=== PATIENT | male | born 1955 | race Caucasian/White ===

== ENCOUNTER 2018-10-11 13:42 | Emergency (ER) | payer BC, MEDICAID ==
[~2018-10-11] VITALS: Ht 172.7 cm; Wt 94.0 kg
--- NOTE | 2018-10-11 15:15 | NUR ---
Pt to room from lobby.
--- NOTE | 2018-10-11 15:40 | NUR ---
PT REPORTS NAUSEA, CHILLS, SWEATS, AND VOMITING FOR THE PAST FEW DAYS. STATES HE STOPPED TAKING GABAPENTIN ABOUT A MONTH AGO "AND THAT STUFF IS JUST CRAP" AT BEDSIDE, PT ON CONT CARDIAC AND PULSE OX MONITORING. AWAITING MD VICK
[2018-10-11] MEDS ORDERED: ONDANSETRON 2MG/ML, 2ML ONE ×2 (16:16→17:33)
[2018-10-11] MEDS ORDERED: MAALOX/HYOSCYAMINE/LIDOCAINE 45 ML BTL ONE (16:16)
[2018-10-11 16:27] LABS: BASOPHILS # (AUTO) 0.08 x10^3/uL (0-0.1); BASOPHILS % (AUTO) 1 % (0-1); EOSINOPHILS % (AUTO) 0 % (1-7); LYMPHOCYTES # (AUTO) 0.78 x10^3/uL (1-3.4); LYMPHOCYTES % (AUTO) 5 % (22-44); MD NO; MEAN CORPUSCULAR HEMOGLOBIN 33.1 pg (27.5-34.5); MEAN CORPUSCULAR HGB CONC 34.5 g/dL (33.2-36.2); MEAN CORPUSCULAR VOLUME 95.9 fL (81-97); MEAN PLATELET VOLUME 10.8 fL (7.4-10.4); MONOCYTES # (AUTO) 0.71 x10^3/uL (0.2-0.8); MONOCYTES % (AUTO) 5 % (2-9); NEUTROPHILS # (AUTO) 13.49 x10^3/uL (1.8-6.8); NEUTROPHILS % (AUTO) 90 % (42-75); PLATELET COUNT 193 x10^3/uL (130-400); RED BLOOD COUNT 4.97 x10^6/uL (4.38-5.82); RED CELL DISTRIBUTION WIDTH 13.6 % (9.4-14.8)
[2018-10-11] MEDS ORDERED: SODIUM CHLORIDE FLUSH 10ML SYR IVF ONE (16:30)
[2018-10-11] MEDS ORDERED: MAALOX/HYOSCYAMINE/LIDOCAINE 45 ML BTL PO ONE (16:30)
[2018-10-11] MEDS ORDERED: SODIUM CHLORIDE 0.9% 1,000ML IVBOLUS ONE (16:30)
--- NOTE | 2018-10-11 16:30 | NUR ---
FLUIDS INFUSING, PT IN ROOM DRY MD ZABRINA AWARE, PER OK TO GIVE ZOFRAN IV PRIOR TO GI COCKTAIL TO AVOID VOMITING.
[2018-10-11 16:36] LABS: ALBUMIN 4.3 g/dL (3.4-5.0); ANION GAP 9 mmol/L (5-15); CALCIUM 9.4 mg/dL (8.5-10.1); CHLORIDE 107 mmol/L (98-107)
[2018-10-11 16:44] LABS: ALANINE AMINOTRANSFERASE 39 U/L (12-78); ALKALINE PHOSPHATASE 76 U/L (45-117); BILIRUBIN,TOTAL 1.1 mg/dL (0.2-1.0); CREATININE 1.11 mg/dL (0.7-1.3); TOTAL PROTEIN 8.3 g/dL (6.4-8.2); TROPONIN I < 0.015 ng/mL (0.000-0.045)
--- NOTE | 2018-10-11 16:58 | NUR ---
PT REPORTS CONTINUED NAUSEA, WILL NOTIFY
[2018-10-11] MEDS ORDERED: ONDANSETRON 2MG/ML, 2ML IVPush ONE ×2 (17:00→17:30)
[2018-10-11 17:42] VITALS: BP 162/86
--- NOTE | 2018-10-11 17:42 | NUR ---
PT MEDICATED PER EMAR, REPORTS DECREASED NAUSEA, BUT STILL THERE. WILL RECHECK, PT AGREES TO DC AFTER RECHECK
--- NOTE | 2018-10-11 18:03 | NUR ---
PT REPORTS DECREASED NAUSEA, AGREES TO DC PLANS. DENIES VOMITING SINCE MEDICATED.
== END 2018-10-11 18:20 | disposition home or self-care (01) ==
LOC: ED 15:57
DX: R11.2 Nausea with vomiting, unspecified (principal); E86.0 Dehydration; Z87.891 Personal history of nicotine dependence; Z90.89 Acquired absence of other organs
CPT/HCPCS: 36415; 71045; 80053; 83690; 84484; 85025; 93005; 96361; 96374; 96376; 99284; J2405; J7030